=== PATIENT | female | born 1960 | race Caucasian/White ===

== ENCOUNTER 2017-09-28 08:21 | Emergency (ER) | payer MEDICAID ==
[2017-09-28] MEDS: KETOROLAC 30 MG INJ IM (10:14)
== END 2017-09-28 10:49 | disposition home or self-care (01) ==
LOC: FTE 08:21
DX: S46.911A Strain of unspecified muscle, fascia and tendon at shoulder and upper arm level, right arm, initial encounter (principal); W01.0XXA Fall on same level from slipping, tripping and stumbling without subsequent striking against object, initial encounter; Y92.9 Unspecified place or not applicable
CPT/HCPCS: 73000; 73030-RT; 73080-RT; 96372; 99284-25